=== PATIENT | female | born 1955 | race Two or more races ===

== ENCOUNTER 2023-03-26 14:34 | Inpatient (IN) | payer OTHER ==
[~2023-03-26] VITALS: Ht 167.6 cm; Wt 90.7 kg
[2023-03-26] MEDS ORDERED: DIOVAN40 MG PO (15:01)
[2023-03-26] MEDS ORDERED: GLIPIZIDE ER5 MG PO (15:02)
[2023-03-26] MEDS ORDERED: KAPSPARGO SPRIN25 MG PO (15:02)
[2023-03-26] MEDS ORDERED: EZALLOR SPRINKLE5 MG PO (15:02)
[2023-03-26] MEDS ORDERED: PANTOPRAZOLE SO40 M2 PO (15:03)
[2023-03-26] MEDS ORDERED: OPTIMAL D31250 MCG PO (15:03)
[2023-03-26] MEDS ORDERED: HYOSCYAMINE0.125 M2 PO (15:03)
[2023-03-26] MEDS ORDERED: FLOVENT HFA12 GM (15:04)
[2023-03-26] MEDS ORDERED: MONTELUKAST SODI4 M1 PO (15:04)
[2023-03-26] MEDS ORDERED: XOPENEX HFA15 GM IH (15:05)
[2023-03-26] MEDS ORDERED: ALLERGY RELIEF4 MG PO (15:05)
[2023-03-26 17:00] LABS: HEMATOCRIT 43.9 % (36.0-45.00); HEMOGLOBIN 14.6 g/dL (12.0-15.00); MEAN CORPUSCULAR HEMOGLOBIN 29.9 pg (27.00-32.0); MEAN CORPUSCULAR HGB CONC 33.3 g/dl (32.0-36.0); PLATELET COUNT 384 K/uL (150-450); RED BLOOD COUNT 4.88 M/uL (4.00-6.00); RED CELL DISTRIBUTION WIDTH 13.5 % (11.5-14.5)
[2023-03-26 17:24] LABS: ALBUMIN 3.9 gm/dL (3.4-5.0); BILIRUBIN TOTAL 1.61 mg/dL (0.3-1.2); CALCIUM 9.7 mg/dL (8.5-10.1); CREATININE SERUM 0.69 mg/dL (0.55-1.02); GFR 84.86; GLOBULINA 3.6 G/DL (2.4-3.5); POTASSIUM 5.09 mEq/L (3.5-5.1); TOTAL PROTEIN 7.5 gm/dL (6.4-8.2)
[2023-03-26 21:45] LABS: INR 0.99; PARTIAL THROMBOPLASTIN TIME 24.9 SECONDS (22.0-34.0); PROTHROMBIN TIME 10.4 SECONDS (9.0-11.5)
[2023-03-26 23:26] LABS: PH,URINE 5.5 (5.0-8.0); URINE APPEARANCE Cloudy; URINE BILIRRUBIN Moderate (NEGATIVE); URINE BLOOD Negative; URINE COLOR Dark Yellow; URINE GLUCOSE Negative (NEGATIVE); URINE LEUKOCYTE Small; URINE NITRATE Negative; URINE PROTEIN 30 (NEGATIVE)
[2023-03-26 23:30] LABS: URINE BACTERIA 2190.9 uL (0.0-1933); URINE EPITHELIAL CELLS 139.4 uL (0.0-38.8); URINE RBC 5.3 uL (0.0-20.8); URINE WBC 46.3 uL (0.0-23.2)
[2023-03-27 21:46] LABS: URINE APPEARANCE Clear; URINE BILIRRUBIN Negative (NEGATIVE); URINE BLOOD Negative; URINE COLOR Yellow; URINE GLUCOSE Negative (NEGATIVE); URINE LEUKOCYTE Negative; URINE NITRATE Negative; URINE PROTEIN Negative (NEGATIVE); URINE UROBILINOGEN 0.2 E.U./dl
[2023-03-27 21:47] LABS: URINE BACTERIA 163.6 uL (0.0-1933); URINE EPITHELIAL CELLS 7.5 uL (0.0-38.8); URINE WBC 2.1 uL (0.0-23.2)
[2023-03-27 21:48] LABS: URINE RBC 0.4 uL (0.0-20.8)
[2023-03-28 06:20] LABS: HEMATOCRIT 37.6 % (36.0-45.00); HEMOGLOBIN 12.9 g/dL (12.0-15.00); MEAN CELL VOLUME 90.9 fL (80.00-100.00); MEAN CORPUSCULAR HEMOGLOBIN 31.2 pg (27.00-32.0); MEAN CORPUSCULAR HGB CONC 34.3 g/dl (32.0-36.0); PLATELET COUNT 312 K/uL (150-450); RED BLOOD COUNT 4.14 M/uL (4.00-6.00); RED CELL DISTRIBUTION WIDTH 13.4 % (11.5-14.5)
[2023-03-28 06:57] LABS: ALBUMIN 3.1 gm/dL (3.4-5.0); BILIRUBIN TOTAL 0.97 mg/dL (0.3-1.2); CALCIUM 9.1 mg/dL (8.5-10.1); CREATININE SERUM 0.66 mg/dL (0.55-1.02); GFR 89.33; GLOBULINA 2.8 G/DL (2.4-3.5); MAGNESIUM 1.9 mg/dL (1.8-2.4); POTASSIUM 4.16 mEq/L (3.5-5.1); TOTAL PROTEIN 5.9 gm/dL (6.4-8.2)
[2023-03-28 07:02] LABS: C-REACTIVE PROTEIN 1.13 MG/DL (0.00-0.29)
== END 2023-03-29 14:24 | disposition home or self-care (01) | DRG 392 ==
LOC: ER 14:35 → MEDJ 21:36
PROVIDERS: General Practice; Internal Medicine Infectious Disease; ADMIT Internal Medicine; ATTEND Internal Medicine
PROC: BW40ZZZ Ultrasonography of Abdomen (ICD-10-PCS; principal; 2023-03-26)
PROC: BW21ZZZ Computerized Tomography (CT Scan) of Abdomen and Pelvis (ICD-10-PCS; 2023-03-26)
DX: K57.92 Diverticulitis of intestine, part unspecified, without perforation or abscess without bleeding (principal); I10 Essential (primary) hypertension; E11.9 Type 2 diabetes mellitus without complications; Z79.4 Long term (current) use of insulin